=== PATIENT | male | born 1985 | race Caucasian/White ===

== ENCOUNTER 2024-05-13 15:02 | Emergency (ER) | payer OTHER, SELFPAY ==
[2024-05-13 15:05] VITALS: BP 147/114
[2024-05-13 15:23] LABS: % Basophils 0.5 % (0-2); % Eosinophils 0.4 % (0-6); % Immature Granulocytes 0.3 % (0-0.5); % Lymphocytes 17.8 % (20.5-51.1); % Monocytes 4.3 % (1.7-9.3); % Neutrophils 76.7 % (42.2-75.2); Absolute Basophils 0.1 10^3/uL (0-0.2); Absolute Monocytes 0.5 10^3/uL (0.1-0.6); Absolute Neutrophils 8.4 10^3/uL (1.4-6.5); Hematocrit 40.4 % (39.0-52.0); Hemoglobin 14.1 g/dL (13.0-18.0); Mean Corp Hgb Conc. 34.9 g/dL (33.0-37.0); Mean Corpuscular Hgb 28.5 pg (27.0-31.0); Mean Corpuscular Volume 81.6 fL (80.0-94.0); Mean Platelet Volume 9.4 fL (7.4-10.4); Nucleated Red Blood Cells % 0 % (-); Platelet Count 340 10^3/uL (130-400); Red Blood Cell Count 4.95 10^6/uL (4.70-6.10); Red Cell Dist. Width 12.4 % (11.5-14.5); White Blood Cell Count 10.9 10^3/uL (4.8-10.8)
[2024-05-13 15:41] LABS: ALT (SGPT) 29 U/L (0-50); AST (SGOT) 40 U/L (17-59); Albumin 4.9 g/dl (3.5-5.0); Alkaline Phosphatase 53 U/L (38-126); Blood Urea Nitrogen 12 mg/dl (9-20); Calcium 9.8 mg/dl (8.4-10.2); Carbon Dioxide 24 mmol/L (22-30); Chloride 103 mmol/L (98-107); Glucose 92 mg/dl (70-99); Sodium 141 mmol/L (135-145); Total Bilirubin 1.2 mg/dl (0.2-1.3); Total Protein 7.4 g/dl (6.3-8.2); eGFR > 60.00
[2024-05-13 15:48] LABS: Troponin I < 0.012 ng/ml
[2024-05-13 16:54] VITALS: BP 134/86
[2024-05-13 17:00] VITALS: BP 128/80
--- NOTE | 2024-05-13 17:01 | ED.GENMED ---
History of Present Illness
General
Chief Complaint: Numbness
Source: patient
Exam Limitations: none
Time Seen by Provider: 05/13/24 16:21
History of Present Illness
History of Present Illness:
38-year-old male otherwise healthy presents complaining of onset of right arm numbness associated with chest pain while driving today around noon. He then developed a warm sensation throughout his entire body. He is not short of breath. He did
feel that both arms became numb and tingling after this started. His symptoms have almost resolved he still notes some occasional chest tightness. He denies a headache. No recent fever or chills. No leg swelling or calf pain.
Phy Exam
Physical Exam
Physical Exam:
General: Well-appearing male no acute respiratory distress
HEENT: Normocephalic atraumatic
Heart: Regular rate and rhythm no murmurs
Lungs: Clear no wheeze
Abdomen is soft nontender nondistended
Extremities: No cyanosis or edema
Course
Orders/Labs/Results
Orders:
Orders
05/13/24 15:09
Electrocardiogram (*1) Urgent
Reason for Study: Chest Pain
EKG- Treatment ONCE
05/13/24 15:15
Complete Blood Count/With Diff Urgent
Comprehensive Metabolic Panel Urgent
Troponin I Urgent
05/13/24 16:40
CR Chest - 2 Views Urgent
Comment:
Reason For Exam: chest pain
05/13/24 18:16
Troponin I Urgent
Abnormal Lab Results
05/13/24
15:15
WBC 10.9 H 10^3/uL
(4.8-10.8)
Absolute Neuts (auto) 8.4 H 10^3/uL
(1.4-6.5)
Neutrophils % 76.7 H %
(42.2-75.2)
Lymphocytes % 17.8 L %
(20.5-51.1)
05/13/24 15:15
05/13/24 15:15
Vital Signs
Initial and Last Documented VS:
Initial Vital Signs
Temp Pulse Resp BP Pulse Ox
98 F 71 16 147/114 99
05/13/24 15:05 05/13/24 15:05 05/13/24 15:05 05/13/24 15:05 05/13/24 15:05
Last Documented Vital Signs
Temp Pulse Resp BP Pulse Ox
98 F 84 18 124/82 95
05/13/24 15:05 05/13/24 19:15 05/13/24 19:15 05/13/24 19:00 05/13/24 19:15
MDM/Problems Addressed
Differential Diagnosis Includes:
Chest discomfort with right arm numbness. Consider ACS versus dissection. Symptoms have almost nearly resolved. Initial EKG shows sinus rhythm with undetectable troponin. Will repeat troponin. Chest x-ray pending to evaluate for widened
mediastinum.
*Critical Care Note
Total Time (30-74mins, 75-104mins- exclusive of procedures): Not Applicable
Update Note
Update Note:
Initial and repeat troponin undetectable. Chest x-ray clear. Patient is healthy. Do not suspect ACS. Symptoms are nearly resolved. Do not suspect PE or dissection. Stable for discharge with follow-up.
Admission not indicated at this time
ED Attending Note
-
Portions of this chart may have been created with voice recognition software.� Occasional wrong word or��sound alike� substitutions may have occurred due to the inherent limitations of voice recognition software.
Discharge Plan
Departure
Patient Disposition: Home (Routine Discharge)
Date of Disposition: 05/13/24
Time of Disposition: 19:35
Patient with high blood pressure during this ER visit?: No
Discharge Problem:
Chest pain
Instructions: Chest Pain PCP Follow Up
Referrals:
Von Herrera MD [Family Provider] -
Activity Restrictions/Additional Instructions:
Please return here for worsening symptoms otherwise follow-up with your family doctor
Interventions
Interventions:
*Risk Screen - Suicide Last Done: 05/13/24 19:28
*General Assessment Last Done: 05/13/24 19:28
*Neglect/Abuse Screening Last Done: 05/13/24 19:28
*ED COVID-19 Vaccine History Last Done: 05/13/24 19:28
ED- Neurological Assessment Last Done: 05/13/24 17:30
Discharge Date and Time
Print Language: LIBYAN
[2024-05-13 18:14] VITALS: BP 123/84
[2024-05-13 18:55] LABS: Troponin I < 0.012 ng/ml
[2024-05-13 19:00] VITALS: BP 124/82
== END 2024-05-13 19:47 | disposition home or self-care (01) ==
LOC: EMR 15:02
PROVIDERS: Emergency Medicine; Physician Assistant; EMERGENCY PHYSICIAN Emergency Medicine; FAMILY PHYSICIAN Family Medicine
DX: R07.89 Other chest pain (principal)
CPT/HCPCS: 99283; 71046; 80053; 84484; 85025; 93005

== ENCOUNTER → 2024-12-09 13:10 | Outpatient (REF) | payer OTHER, SELFPAY | LOC: HWRAD 13:10 | PROVIDERS: ATTENDING PHYSICIAN Physician Assistant | DX: R10.2 Pelvic and perineal pain (principal); R31.29 Other microscopic hematuria | CPT/HCPCS: 74176 ==